=== PATIENT | male | born 1960 | race African-American/Black ===

== ENCOUNTER 2017-09-06 02:36 | Emergency (ER) | payer OTHER ==
[~2017-09-06] VITALS: Ht 170.2 cm; Wt 97.5 kg
[~2017-09-06 02:36] MED LIST: EFFEXOR XR75 MG PO; FOLIC ACID1 MG PO; HYDROCHLOROTH12.5 M1 PO; IBUPROFEN 600600 M1 PO; IBUPROFEN 800800 M1 PO; LAMICTAL100 MG PO; LIDODERM 5%1 PATC1 TRANSDERM; NORCO 5-325 TA1 EACH PO; OLANZAPINE20 MG PO; PHENOBARBITAL64.8 MG PO; TRAMADOL 50 MG50 MG PO; TRINATE TABLET1 TAB PO; VENLAFAXIN75 MG/1 T2 PO; VITAMIN B-12500 MCG; ZYPREXA20 MG PO
[2017-09-06] MEDS ORDERED: NAPROSYN500 MG PO (04:19)
[2017-09-06] MEDS ORDERED: ROBAXIN500 MG PO (04:19)
[2017-09-06] MEDS ORDERED: TRAMADOL 50 MG50 MG PO (04:19)
== END 2017-09-06 04:55 | disposition home or self-care (01) ==
LOC: ER 02:36
DX: M43.6 Torticollis (principal); I10 Essential (primary) hypertension; F32.9 Major depressive disorder, single episode, unspecified; Z90.49 Acquired absence of other specified parts of digestive tract; F17.210 Nicotine dependence, cigarettes, uncomplicated

== ENCOUNTER 2020-09-12 08:33 | Emergency (ER) | payer OTHER ==
[~2020-09-12] VITALS: Ht 167.6 cm; Wt 101.2 kg
[~2020-09-12 08:33] MED LIST changes: +NAPROSYN500 MG PO; +ROBAXIN500 MG PO
[2020-09-12] MEDS ORDERED: PROAIR HFA8.5 GM INH ×2 (08:52→08:54)
[2020-09-12] MEDS ORDERED: MELOXICAM15 MG PO (08:52)
[2020-09-12] MEDS ORDERED: LAMOTRIGINE150 MG PO (08:53)
[2020-09-12] MEDS ORDERED: SYMBICORT160 MCG/4. INH (08:53)
[2020-09-12] MEDS ORDERED: PRENATAL VITAM1 EAC1 PO (08:53)
[2020-09-12] MEDS ORDERED: SPIRIVA RESPIMAT4 GM INH (08:53)
[2020-09-12] MEDS ORDERED: MIRTAZAPINE15 M2 PO (08:54)
[2020-09-12] MEDS ORDERED: OLANZAPINE15 MG PO (08:54)
[2020-09-12] MEDS ORDERED: PERPHENAZINE 2 M2 MG PO (08:55)
[2020-09-12] MEDS ORDERED: TRAZODONE HCL100 MG PO (08:55)
[2020-09-12] MEDS ORDERED: VENLAFAXINE HC150 M1 PO (08:55)
[2020-09-12] MEDS ORDERED: VENLAFAXINE HCL75 M2 PO (08:56)
[2020-09-12 10:06] VITALS: BP 112/70
== END 2020-09-12 10:06 | disposition home or self-care (01) ==
LOC: ER 08:33
DX: S91.312A Laceration without foreign body, left foot, initial encounter (principal); I10 Essential (primary) hypertension; F17.210 Nicotine dependence, cigarettes, uncomplicated; Z79.899 Other long term (current) drug therapy; Z90.49 Acquired absence of other specified parts of digestive tract; W01.0XXA Fall on same level from slipping, tripping and stumbling without subsequent striking against object, initial encounter; Y93.E1 Activity, personal bathing and showering; Y92.89 Other specified places as the place of occurrence of the external cause; Y99.9 Unspecified external cause status